=== PATIENT | female | born 1945 | race Caucasian/White ===

== ENCOUNTER → 2020-02-14 12:45 | Outpatient (CLI) | payer MEDICARE, SELFPAY ==
--- NOTE | ~2020-02-14 | MM_ITS ---
EXAMINATION: MM screening [facility] BI w radha HISTORY: Screening TECHNIQUE: Craniocaudal and mediolateral oblique 3-D tomosynthesis images were obtained and synthetic 2-D images were generated. CAD analysis was submitted and interpreted. COMPARISON: Comparison to multiple prior studies sequentially, with oldest reviewed study dated 02/2014. BREAST PARENCHYMAL COMPOSITION: Breast composed of scattered areas of fibroglandular density. FINDINGS: There is no evidence of suspicious mass, calcification, or architectural distortion to sugg est malignancy in either breast. There has been no suspicious interval change. IMPRESSION: 1. No mammographic evidence of malignancy. 2. Recommend routine screening mammography in one year. BI-RADS Category 1: Negative Reviewed, dictated and finalized at location A.
== END ==
PROVIDERS: PCP Family Medicine; Visit Provider Family Medicine
DX: Z12.31 Encounter for screening mammogram for malignant neoplasm of breast (principal)
CPT/HCPCS: 77063; 77067

== ENCOUNTER → 2021-02-18 10:04 | Outpatient (CLI) | payer MEDICARE, SELFPAY ==
--- NOTE | ~2021-02-18 | MM_ITS ---
EXAMINATION: MM screening [facility] BI w radha HISTORY: Screening TECHNIQUE: Craniocaudal and mediolateral oblique 3-D tomosynthesis images were obtained and synthetic 2-D images were generated. CAD analysis was submitted and interpreted. COMPARISON: Comparison to multiple prior studies sequentially, with oldest reviewed study dated 12/17. BREAST PARENCHYMAL COMPOSITION: There are scattered areas of fibroglandular density. FINDINGS: There are developing asymmetries in the subareolar location of the left breast, slightly in ferior. The right breast is stable without evidence for malignancy. IMPRESSION: 1. Developing left breast asymmetry. 2. Additional mammographic views and possible breast ultrasound are recommended. BI-RADS Category 0: Incomplete: Needs additional imaging evaluation. Reviewed, dictated and finalized at location A. IMPRESSION: 1. Developing left breast asymmetry. 2. Additional mammographic views and possible breast ultrasound are recommended . BI-RADS Category 0: Incomplete: Needs additional imaging evaluation.
== END ==
PROVIDERS: PCP Family Medicine; Visit Provider Family Medicine
DX: Z12.31 Encounter for screening mammogram for malignant neoplasm of breast (principal); R92.8 Other abnormal and inconclusive findings on diagnostic imaging of breast
CPT/HCPCS: 77063; 77067

== ENCOUNTER → 2021-03-17 08:39 | Outpatient (CLI) | payer MEDICARE, SELFPAY ==
--- NOTE | ~2021-03-17 | MMUS_ITS ---
EXAMINATION: MM diagnostic [facility] LT w radha, US breast LT complete HISTORY: Follow-up left breast asymmetries TECHNIQUE: Additional 3-D tomosynthesis images of the left breast were performed and synthetic 2-D im ages were generated. CAD analysis was submitted and interpreted. High resolution complete left breast ultrasound was performed. COMPARISON: Comparison to multiple prior studies sequentially, with oldest reviewed study dated 12/20. BREAST PARENCHYMAL COMPOSITION: Breast composed of scattered areas of fibroglandular density. FINDINGS: MAMMOGRAPHIC FINDINGS: There are small radiolucent masses in the lower central aspect of the left breast anteriorly near the areola. The largest measures approximately 6 mm. ULTRASOUND: Complete bilateral US of all 4 quadrants of the breasts and retroareolar region was reviewed. There a re multiple cysts at the 6:00 position near the areola, largest measuring 4 mm. There are additional small cysts near the areola. No suspicious masses to suggest malignancy. IMPRESSION: 1. No evidence for malignancy in the left breast. Benign findings. 2. Routine yearly screening mammogram and regular clinical breast examination are recommended. BI-RADS Category 2: Benign finding(s). Reviewed, dictated and finalized at location A. IMPRESSION: 1. No evidence for malignancy in the left breast. Benign findings. 2. Routine yearly screening mammogram and regular clinical breast examination a re recommended. BI-RADS Category 2: Benign finding(s).
== END ==
PROVIDERS: PCP Family Medicine; Visit Provider Family Medicine
DX: R92.8 Other abnormal and inconclusive findings on diagnostic imaging of breast (principal)
CPT/HCPCS: 76641; 77061; 77065; G0279

== ENCOUNTER 2022-01-09 11:10 | Emergency (ER) | payer MEDICARE, SELFPAY ==
[2022-01-09] VITALS (18 sets, daily range): BP systolic 117–168; BP diastolic 47–80; PULSE 62; RESP 20; TEMP 36.8; O2SAT 95–100
--- NOTE | ~2022-01-09 | XR_ITS ---
XR chest 1V portable DATE: 01/09/2022 13:12 INDICATION: Dizziness TECHNIQUE: Portable AP chest on 8212/2021 at 1309 hours COMPARISON: None FINDINGS: Normal heart size. No hilar or mediastinal enlargement. No pulmonary infiltrate or consol idation, pulmonary vascular congestion or pleural effusion or pneumothorax. Degenerative spurring of the thoracic spine. IMPRESSION: No active cardiopulmonary disease Osteopenia Reviewed, dictated and finalized at location A.
--- NOTE | ~2022-01-09 | CT_ITS ---
EXAMINATION: CT brain wo con DATE: 01/09/2022 13:30 INDICATION: Dizziness. History of vertigo. TECHNIQUE: Computed tomography (CT) of the head was performed without intravenous contrast. The mA wa s adjusted according to patient size. Iterative reconstruction technique was employed. Exam dose: 60 5.33 mGy-cm total exam DLP. COMPARISON: None FINDINGS: No intracranial mass lesion or hemorrhage or cerebrovascular accident. No midline shift or mass effect. Bilateral carotid siphon internal carotid artery calcification. There is nonspecific diminished attenuation of the cerebral white matter, likely due to chronic small vessel ischemic changes. The paranasal sinuses and mastoid air cells are normally developed and aerated. No fracture or bone destruction of the cranial vault. IMPRESSION: Cerebral atherosclerosis and chronic small vessel ischemic changes.. No acute intracran ial abnormality Reviewed, dictated and finalized at Location A. Reviewed, dictated and finalized at location A. IMPRESSION: Cerebral atherosclerosis and chronic small vessel ischemic changes .. No acute intracranial abnormality
--- NOTE | 2022-01-09 11:21 | ECG_ITS ---
Measurements Intervals [place] Rate: 60 P: 79 DC: 194 QRS: 60 QRSD: 93 T: 50 QT: 412 QTc: 414 Interpretive Statements SINUS RHYTHM WITHIN NORMAL LIMITS NO PREVIOUS ECG AVAILABLE FOR COMPARISON Electronically Signed On 01-10-2022 14:10:06 CDT by Yousuf Martínez M.D.
[2022-01-09 11:45] LABS: Basophils Percent Auto 0.4 % (0.2-1.2); Eosinophils Absolute Auto 0.1 K/mm3 (0-0.3); Eosinophils Percent Auto 0.6 % (0-4.4); Hematocrit 43.2 % (37.0-47.0); Hemoglobin 14.7 g/dL (12.0-15.0); Immature Granulocyte Absolute 0.09 K/mm3 (0.00-0.031); Immature Granulocyte Percent A 0.8 % (0-0.5); Lymphocytes Absolute Auto 1.43 K/mm3 (0.9-3.2); Lymphocytes Percent Auto 12.8 % (18.3-44.2); Mean Corpuscular Hemoglobin 32.1 pg (26-34); Mean Corpuscular Volume 94.3 fl (80-100); Mean Platelet Volume 9.2 fl (7.4-10.4); Monocytes Absolute Auto 0.6 K/mm3 (0.1-0.6); Monocytes Percent Auto 5.2 % (2.6-8.5); Neutrophils Absolute Auto 8.9 K/mm3 (1.3-6.7); Neutrophils Percent Auto 80.2 % (45.5-73.1); Platelet Count Result 251 k/mm3 (150-375); Red Blood Count 4.58 M/mm3 (4.2-5.4); Red Cell Distribution Width 12.7 % (11.5-14.5); White Blood Count 11.2 K/mm3 (4.5-10.0)
[2022-01-09 11:56] LABS: Alanine Aminotransferase 26 U/L (6-35); Albumin Level 4.6 g/dL (3.5-5.1); Alkaline Phosphatase 64 U/L (38-126); Anion Gap 11 mmol/L (8-16); Aspartate Amino Transferase 31 U/L (14-36); Bilirubin,Total 0.5 mg/dL (0.2-1.3); Blood Urea Nitrogen 19 mg/dL (7-17); Calcium 9.5 mg/dL (8.4-10.2); Carbon Dioxide 26 mmol/L (22-30); Chloride 101 mmol/L (98-107); Estimated CRCL calculation 45 ml/min; Estimated Glomerular Filt Rate > 60; Glucose 163 mg/dL (65-110); Sodium 138 mmol/L (137-145)
--- NOTE | 2022-01-09 13:03 | ED.DIZZY ---
HPI - Dizziness General Chief Complaint: Dizziness Stated Complaint: vomiting, dizzy Time Seen by Provider: 01/09/22 13:03 Source: patient Mode of arrival: ambulatory Limitations: no limitations History of Present Illness HPI Narrative: 76 years old white female work-up this morning with everything is spinning, worse with movement, better sitting still or laying still. Had similar history 17 years ago secondary to vertigo. She denies any fever, chills, nausea, chest pain shortness of breath, headache or focal neurodeficit. 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 Related Data Allergies Allergy/AdvReac Type Severity Reaction Status Date / Time adhesive Allergy Mild Rash Verified 02/13/19 06:56 hydrocodone AdvReac Mild HALLUCINATI Verified 02/13/19 06:56 ONS Contrast Media Allergy Intermediate HIVES Uncoded 02/13/19 06:56 Review of Systems Review of Systems: All systems reviewed & are unremarkable except as noted in HPI and below Exam Narrative: General appearance: Well-developed, well-nourished Skin: Normal color Head: Normocephalic, nontraumatic Eyes: Clear conjunctiva ENT: Oropharynx normal, ears normal, nose normal Neck: Supple, nontender Chest and respiratory: Airway patent, no respiratory distress, no accessory muscle use Heart: Regular rate/rhythm Abdomen: Soft, nontender, no organomegaly, quiet bowel sounds Vascular: Normal peripheral pulses, normal capillary refill. Musculoskeletal: Normal range of motion, nontender back Neurologic: Alert and oriented ?3, [employer]CUE is normal as tested, no gross motor deficit Course Course Emergency Course: Patient's symptoms resolved after Valium, Antivert and Zofran. Vital Signs Vital signs: Vital Signs Temperature 36.8 C 01/09/22 11:18 Pulse Rate 62 01/09/22 11:18 Respiratory Rate 20 01/09/22 11:18 Blood Pressure 145/80 H 01/09/22 11:18 Pulse Oximetry 100 01/09/22 11:18 Oxygen Delivery Room Air 01/09/22 11:18 Temperature 36.8 C 01/09/22 11:18 Pulse Rate 62 01/09/22 11:18 Respiratory Rate 20 01/09/22 11:18 Blood Pressure 146/47 H 01/09/22 14:02 Pulse Oximetry 96 01/09/22 14:15 Oxygen Delivery Room Air 01/09/22 11:18 MDM - Dizziness Differential Diagnosis Differential diagnosis: Likely benign paroxysmal positional vertigo, orthostatic hypotension, vertebral basilar insufficiency, cerebrovascular accident and acute vestibular neuronitis Lab Data Result diagrams: 01/09/22 11:35 01/09/22 11:35 Labs: Lab Results 01/09/22 01/09/22 01/09/22 Range/Units 11:35 11:35 11:35 WBC 11.2 H (4.5-10.0) K/mm3 RBC 4.58 (4.2-5.4) M/mm3 Hgb 14.7 (12.0-15.0) g/dL Hct 43.2 (37.0-47.0) % MCV 94.3 (80-100) fl MCH 32.1 (26-34) pg MCHC 34.0 (32-36) g/dl RDW 12.7 (11.5-14.5) % Plt Count 251 (150-375) k/mm3 MPV 9.2 (7.4-10.4) fl Immature Gran % (Auto) 0.8 H (0-0.5) % Neut % (Auto) 80.2 H (45.5-73.1) % Lymph % (Auto) 12.8 L (18.3-44.2) % [place] % (Auto) 5.2 (2.6-8.5) % Eos % (Auto) 0.6 (0-4.4) % Baso % (Auto) 0.4 (0.2-1.2) % Lymph # (Auto) 1.43 (0.9-3.2) K/mm3 [place] # (Auto) 0.6 (0.1-0.6) K/mm3 Eos # (Auto) 0.1 (0-0.3) K/mm3 Baso # (Auto) 0.0 (0.0-0.1) K/mm3 Abs Immat Gran (auto) 0.09 H (0.00-0.031) K/mm3 Absolute Neuts (auto) 8.9 H (1.3-6.7) K/mm3 Absolute Nucleated RBC 0.0 (0.0-0.012) K/mm3 Nucleated RBC % 0.0 (0.0-0.2) % Sodium 138 (137-145) mmol/L Potassium 4.0 (3.4-5.0) mmol/L Chloride 101 (98-107) mmol/L Carbon Dioxide 26 (22-30) mmol/L Anion Gap 11 (8-16) mmol/L BUN 1
[2022-01-09 13:46] LABS: Troponin I < 0.012 ng/mL (0.000-0.034)
[2022-01-09] MEDS: diazePAM INJ (*CRX) 10 MG/2 ML SYRINGE 5 MG IV PUSH (13:53)
[2022-01-09] MEDS: MECLIZINE HCL 25 MG TABLET PO (13:53)
[2022-01-09] MEDS: ONDANSETRON INJ 4 MG/2 ML VIAL IV PUSH (13:53)
== END 2022-01-09 15:18 | disposition home or self-care (01) ==
PROVIDERS: Emergency Provider Emergency Medicine; PCP Family Medicine
DX: H81.10 Benign paroxysmal vertigo, unspecified ear (principal); I67.2 Cerebral atherosclerosis; M85.88 Other specified disorders of bone density and structure, other site
CPT/HCPCS: 36415; 70450; 71045; 80053; 84484; 85025; 93005; 96374; 96375; 99284; A9270; J2405; J3360

== ENCOUNTER → 2022-03-24 13:59 | Outpatient (CLI) | payer MEDICARE, SELFPAY ==
--- NOTE | ~2022-03-24 | MM_ITS ---
EXAMINATION: MM screening [facility] BI w radha HISTORY: Screening TECHNIQUE: Craniocaudal and mediolateral oblique 3-D tomosynthesis images were obtained and synthetic 2-D images were generated. CAD analysis was submitted and interpreted. COMPARISON: Comparison to multiple prior studies sequentially, with oldest reviewed study dated 12/22. BREAST PARENCHYMAL COMPOSITION: There are scattered areas of fibroglandular density. FINDINGS: There is no evidence of suspicious mass, calcification, or architectural distortion to sugg est malignancy in either breast. There has been no suspicious interval change. IMPRESSION: 1. No mammographic evidence of malignancy. 2. Recommend routine screening mammography in one year. BI-RADS Category 1: Negative Reviewed, dictated and finalized at location A.
== END ==
DX: Z12.31 Encounter for screening mammogram for malignant neoplasm of breast (principal)
CPT/HCPCS: 77063; 77067

== ENCOUNTER → 2023-04-25 11:46 | Outpatient (CLI) | payer MEDICARE, SELFPAY ==
--- NOTE | ~2023-04-25 | MM_ITS ---
EXAMINATION: MM screening [facility] BI w radha HISTORY: Screening mammogram TECHNIQUE: Craniocaudal and mediolateral oblique 3-D tomosynthesis images were obtained and synthetic 2-D images were generated. CAD analysis was submitted and interpreted. COMPARISON: 03/24/2022 bilateral screening mammogram 03/17/2021 diagnostic left mammogram and complete left breast ultrasound 02/18/2021, 02/14/2020 bilateral screening mammogram examinations BREAST PARENCHYMAL COMPOSITION: There are scattered areas of fibroglandular density. FINDINGS: There is no evidence of suspicious mass, calcification, or architectural distortion to sugg est malignancy in either breast. There has been no suspicious interval change. IMPRESSION: 1. No mammographic evidence of malignancy. 2. Recommend routine screening mammography in one year. BI-RADS Category 1: Negative Reviewed, dictated and finalized at location A. 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
== END ==
DX: Z12.31 Encounter for screening mammogram for malignant neoplasm of breast (principal)
CPT/HCPCS: 77063; 77067

== ENCOUNTER 2024-04-26 10:56 | Outpatient (CLI) | payer MEDICARE, SELFPAY ==
--- NOTE | ~2024-04-26 | MM_ITS ---
EXAMINATION: MM screening [facility] BI w radha HISTORY: Screening mammogram TECHNIQUE: Craniocaudal and mediolateral oblique 3-D tomosynthesis images were obtained and synthetic 2-D images were generated. CAD analysis was submitted and interpreted. COMPARISON: 04/25/2023, 03/24/2022, 03/17/2021, 02/18/2021 BREAST PARENCHYMAL COMPOSITION:Not Dense. There are scattered areas of fibroglandular density. FINDINGS: No suspicious mass, calcification, or architectural distortion are identified in either tammy ast to suggest malignancy. There has been no suspicious interval change. IMPRESSION: No mammographic evidence of malignancy. Recommend routine screening mammography in one year. BI-RADS Category 1: Negative Reviewed, dictated and finalized at location . 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
== END 2024-04-26 10:57 | disposition home or self-care (01) ==
LOC: MICIMG 10:58
PROVIDERS: PCP Family Medicine; Visit Provider Family Medicine
DX: Z12.31 Encounter for screening mammogram for malignant neoplasm of breast (principal)
CPT/HCPCS: 77063; 77067

== ENCOUNTER 2025-04-28 12:30 | Outpatient (CLI) | payer MEDICARE, SELFPAY ==
--- NOTE | ~2025-04-28 | MM_ITS ---
EXAMINATION: MM screening [facility] BI w radha HISTORY: Screening TECHNIQUE: Craniocaudal and mediolateral oblique 3-D tomosynthesis images were obtained and synthetic 2-D images were generated. CAD analysis was submitted and interpreted. COMPARISON: Comparison to multiple prior studies sequentially, with oldest reviewed study dated 02/13/2022. BREAST PARENCHYMAL COMPOSITION: Not dense: There are scattered areas of fibroglandular density. FINDINGS: There is no evidence of suspicious mass, calcification, or architectural distortion to suggest malignancy in either breast. There has been no suspicious interval change. IMPRESSION: 1. No mammographic evidence of malignancy. 2. Recommend routine screening mammography in one year. BI-RADS Category 1: Negative Reviewed, dictated and finalized at location O. NTION DEPUTY
== END 2025-04-28 12:31 | disposition home or self-care (01) ==
LOC: MICIMG 12:30
PROVIDERS: PCP Family Medicine; Visit Provider Family Medicine
DX: Z12.31 Encounter for screening mammogram for malignant neoplasm of breast (principal)
CPT/HCPCS: 77063; 77067